=== PATIENT | male | born 1950 | race Caucasian/White ===

== ENCOUNTER 2018-10-04 14:40 | Inpatient (IN) | payer OTHER ==
--- NOTE | 2018-10-04 13:16 | GHP ---
[f rep st] PREOP HISTORY AND PHYSICAL PATIENT NAME: Richard Harry DATE OF : 1950 DATE OF PLANNED ADMISSION: 10/04/2018 ADMISSION DIAGNOSIS: Septic arthritis, right knee, following total knee arthroplasty. HPI: Richard is a 68-year-old male who underwent a total knee arthroplasty by myself in July 2017. He has done extremely well up until September 29 when he was found down on the ground at home in [place], [place]. He was taken to a local hospital there. He was found to be tachycardic, which was though t to be related to his atrial fibrillation, which he is currently on Coumadin for. They were able to get his rate controlled; however, he had several venous stasis ulcers on the right lower extremity. These were cultured and came back MRSA. He developed slowly progressive swelling in the right knee with difficulty bearing weight. This was then aspirated, yesterday, and came back with a white count of 67,000. He is being brought to [place], admitted here, so I can wash his knee out today in the o perating room. PRIOR MEDICAL HISTORY: Atrial fibrillation; coronary artery disease; mitral valve replacement with a mechanical valve; hypercholesterolemia; degenerative disk disease, lumbar spine. SURGICAL HISTORY: A right total knee replacement July 2017. MEDICATIONS: 1. Coumadin 7.5 milligrams daily. 2. Digoxin 0.25 milligrams daily. 3. Metoprolol 100 milligrams twice daily. ALLERGIES: Penicillin, sulfadiazine and sulfa. SOCIAL HISTORY: Does not smoke. Does not use alcohol. Lives in [place], [place]. REVIEW OF SYSTEMS: No shortness of breath. No chest pain. Otherwise, review of systems is unremark able. PHYSICAL EXAM: VITAL SIGNS: Temperature is 37.7, heart rate is 100, respiratory rate is 20, blood p ressure is 103/59. Oxygen saturation is 98%. GENERAL: He is alert and oriented x3, in no distress. HEAD: Normocephalic, atraumatic. EYES: Extraocular muscles intact. NECK: Supple. There is no lymphadenopathy. No JVD. CHEST: Clear to auscultation. CARDIOVASCULAR: Regular rate and rhythm. ABDOMEN: Soft, nontender, nondistended. EXTREMITIES: Right lower extremity shows venous stasis ul cers. There is redness consistent with cellulitis below the knee. The knee does have an effusion. The area over the aspiration not draining. This was superolateral. He is somewhat tender around the knee diffusely as well as posteriorly. No calf tenderness. He has full extension of the knee, flex es to about 100 degrees. ASSESSMENT: Septic arthritis following cellulitis, right lower extremity. PLAN: Given his elevated white count, and his aspiration, he has been on vancomycin, now, since the . Unfortunately, his INR, today, is 2.9, and I do not want to wait any longer, try and reverse hi m, given his history of atrial fibrillation. I will do this with a tourniquet. I am going to wash o ut his knee, change out his poly. Will get Infectious Disease to consult him as well. I will ask [facility] hospitalist to help consult and medically manage him due to his complexity and multiple medical pro blems. I anticipate a few days in the hospital, and then, we will discharge him back to [place]. He wi ll probably need a PICC line and ongoing intravenous antibiotics trying and clear this infection. /[id number]/MODL
[~2018-10-04 14:40] MED LIST: LIDOCAINE 1% 2 ML INJ ID PRN; LR 1,000 ML IV ONE; VANCOMYCIN PHARMACY TO DOSE MISC ONE
[2018-10-04] MEDS ORDERED: VANCOMYCIN 1.25 GM in NS 250 ML IV ONE (15:00)
[2018-10-04] MEDS ORDERED: ceFAZolin 1 GM/5 ML SYR ONE (15:35)
[2018-10-04] MEDS ORDERED: ROCURONIUM 50 MG/5 ML VIAL ONE (15:59)
[2018-10-04] MEDS ORDERED: LIDOCAINE 2% 2 ML INJ ONE (15:59)
[2018-10-04] MEDS ORDERED: fentaNYL 100 MCG/2 ML INJ ONE ×6 (15:59→17:57)
[2018-10-04] MEDS ORDERED: ONDANSETRON 4 MG/2 ML VIAL ONE (15:59)
[2018-10-04] MEDS ORDERED: DEXAMETHASONE 4 MG/ML VIAL ONE (15:59)
[2018-10-04] MEDS ORDERED: PROPOFOL 200 MG/20 ML VIAL ONE (16:00)
[2018-10-04] MEDS ORDERED: NALOXONE HCL 0.4 MG/ML INJ IVP PRN (16:40)
[2018-10-04] MEDS ORDERED: METOCLOPRAMIDE 10 MG/2 ML VIAL IVP PRN ×2 (16:40→18:23)
[2018-10-04] MEDS ORDERED: fentaNYL 100 MCG/2 ML INJ IVP PRN (16:40)
[2018-10-04] MEDS ORDERED: PROMETHAZINE HCL 25 MG/ML INJ IVP PRN ×2 (16:40→18:23)
[2018-10-04] MEDS ORDERED: PHENYLEPHRINE HCL 100 MCG/ML SYR IVP PRN (16:40)
[2018-10-04] MEDS ORDERED: HYDROmorphONE/DILAUDID 2 MG/ML INJ IVP PRN (16:40)
[2018-10-04] MEDS ORDERED: ONDANSETRON 4 MG/2 ML VIAL IVP PRN ×2 (16:40→18:23)
[2018-10-04] MEDS ORDERED: oxyCODONE IR 5 MG TAB PO PRN (16:40)
--- NOTE | 2018-10-04 16:40 | PDANEPAE ---
ANE Past Medical History - Cardiovascular History Hx Hypertension: Yes Hx Arrhythmias: Yes Hx Chest Pain: Yes Hx Coronary Artery / Peripheral Vascular Disease: Yes Hx CHF / Valvular Disease: Yes Hx Palpitations: No Cardiovascular History Comment: afib, CAD, carotid artery disorder, MVR w/ mech valve, on Coumadin, chronic diastolic heart failure, hypercholesteremia - Pulmonary History Hx COPD: No Hx Asthma/Reactive Airway Disease: No Hx Recent Upper Respiratory Infection: No Hx Oxygen in Use at Home: No Hx Sleep Apnea: No - Neurologic History Hx Cerebrovascular Accident: No Hx Seizures: No Hx Dementia: No - Endocrine History Hx Diabetes: No - Renal History Hx Renal Disorders: Yes Renal History Comment: kidney stones - Liver History Hx Hepatic Disorders: No - Neurological & Psychiatric Hx Hx Neurological and Psychiatric Disorders: No - Cancer History Hx Cancer: No - Congenital Disorder History Hx Congenital Disorders: No - GI History Hx Gastrointestinal Disorders: No Gastrointestinal History Comment: has had colonoscopy without polps - Chronic Pain History Chronic Pain: No - Surgical History Prior Surgeries: right TKA approximately 1 year ago,. MVR, cabg single vessel, clavical repair, hemmroidectomy ANE Review of Systems Review of Systems: - Exercise capacity METS (RN): 4 METS ANE Patient History - Allergies Allergies/Adverse Reactions: Sulfa (Sulfonamide Antibiotics) Allergy (Intermediate, Verified 10/04/18 12:42) Hives Penicillins Allergy (Unknown, Verified 10/04/18 15:03) Unknown - Home Medications Home Medications: Aspirin EC [Aspirin EC 81 mg (*)] 81 mg PO DAILY 10/04/18 [Last Taken 10/03/18] Bumetanide [Bumex (*)] 2 mg PO DAILY 10/04/18 [Last Taken 10/03/18] Digoxin [Digox] 125 mcg PO DAILY 10/04/18 [Last Taken 10/03/18] Metoprolol Tartrate [Lopressor 50 mg (*)] 50 mg PO BID 10/04/18 [Last Taken 06/13] Simvastatin 20 mg PO HS 10/04/18 [Last Taken 10/03/18] Spironolactone [Aldactone 25 MG (*)] 12.5 mg PO DAILY 10/04/18 [Last Taken 10/03] Warfarin Sodium [Coumadin 5MG (*)] 5 mg PO SUTUWETHSA 10/04/18 [Last Taken 10/03] - NPO status NPO Since - Liquids (Date): 10/04/18 NPO Since - Liquids (Time): 10:00 NPO Since - Solids (Date): 10/04/18 NPO Since - Solids (Time): 08:00 - Smoking Hx Smoking Status: Never smoked ANE Labs/Vital Signs - Vital Signs Heart Rate: 97 Respiratory Rate: 18 O2 Sat (%): 93 Height: 185.42 cm Weight: 77.96 kg ANE Physical Exam - Airway Neck exam: FROM Mallampati Score: Class 2 Mouth exam: normal dental/mouth exam - Pulmonary Pulmonary: no respiratory distress, no rales or rhonchi, clear to auscultation - Cardiovascular Cardiovascular: regular rate and rhythym, other - ASA Status ASA Status: IV ANE Anesthesia Plan Anesthesia Plan: general endotracheal anesthesia
--- NOTE | 2018-10-04 16:40 | POSTANESTH ---
Post Anesthetic Evaluation Cardiovascular Status: Normal, Stable Respiratory Status: Normal, Stable Level of Consciousness/Mental Status: Can Participate in Eval Pain Control: Adequate, Prn Tx Ordered Nausea/Vomiting Control: Adequate, Prn Tx Ordered Complications Possibly Related to Anesthesia: None Noted
[2018-10-04] MEDS ORDERED: BACITRACIN 50,000 UNITS/10 ML SYR IRR ONE (16:44)
[2018-10-04] MEDS ORDERED: BUPIVACAINE/EPI 0.5% 30 ML SDV ONE (16:52)
[2018-10-04] MEDS ORDERED: BISACODYL 10 MG SUPP PR PRN (18:23)
[2018-10-04] MEDS ORDERED: LACTULOSE 20 GM/30 ML UDCUP PO PRN (18:23)
[2018-10-04] MEDS ORDERED: ONDANSETRON DISINTEGRATING 4 MG TAB PO PRN (18:23)
[2018-10-04] MEDS ORDERED: diphenhydrAMINE 25 MG CAP PO PRN (18:23)
[2018-10-04] MEDS ORDERED: PROMETHAZINE HCL 25 MG SUPPR PR PRN (18:23)
[2018-10-04] MEDS ORDERED: HYDROmorphONE/DILAUDID 2 MG/ML INJ ONE (18:23)
[2018-10-04] MEDS ORDERED: MAGNESIUM HYDROXIDE 30 ML UDCUP PO PRN (18:23)
[2018-10-04] MEDS ORDERED: DIPHENOXYLATE/ATROPINE LOMOTIL 1 TAB PO PRN (18:23)
[2018-10-04] MEDS ORDERED: POLYETHYLENE GLYCOL 3350 17 GM PKT PO PRN (18:23)
[2018-10-04] MEDS ORDERED: WARFARIN SODIUM 5 MG TAB PO SCH ×2 (18:30→22:24)
[2018-10-04] MEDS ORDERED: LR 1,000 ML IV SCH (18:30)
--- NOTE | 2018-10-04 18:33 | POSTOPPROG ---
Post Op Note Date of Operation: 10/04/18 Surgeon: Isaiah Huang Anesthesiologist: Juan Anesthesia: LMA Pre-op Diagnosis: Septic arthritis RT knee s/p TKA Post-op Diagnosis: same Indication: infected TKA Procedure: I&D, poly exchange Findings: purulence in knee Inf/Abcess present in the surg proc area at time of surgery?: Yes Depth: Deep Incisional (Fascial) EBL: 50-100 Complications: none Bowel Protocol: Yes Clean Closure Performed: Yes Drains: Constavac
[2018-10-04] MEDS: SENNOSIDES/DOCUSATE SODIUM TAB PO SCH (20:47)
[2018-10-04] MEDS: ATORVASTATIN CALCIUM 10 MG TAB PO SCH (20:47)
[2018-10-04] MEDS: METOPROLOL TARTRATE 50 MG TAB PO SCH (20:47)
[2018-10-04 22:22] LABS: INR 2.29 (0.83-1.16); PROTIME(PATIENT) 24.1 SEC (12.0-15.0)
[2018-10-05] MEDS: ACETAMINOPHEN 325 MG TAB PO SCH ×4 (01:36→20:26)
[2018-10-05] MEDS ORDERED: VANCOMYCIN HCL/NORMAL SALINE 250 ML IV ONE (05:30)
--- NOTE | 2018-10-05 05:49 | GOP ---
[f rep st] OPERATIVE REPORT DATE OF OPERATION: 10/04/2018 SURGEON: Isaiah Huang MD ANESTHESIA: LMA. ANESTHESIOLOGIST: Dr. Martinez. PREOPERATIVE DIAGNOSIS: Septic arthritis following total knee arthroplasty, right knee. POSTOPERATIVE DIAGNOSIS: Septic arthritis following total knee arthroplasty, right knee. PROCEDURE PERFORMED: 1. Irrigation and debridement right knee. 2. Poly exchange. FINDINGS: INDICATIONS: Alex is a very pleasant 68-year-old male who has been dealing with some venous stasis ulcers on his lower leg. He lives in [place], [place]. He is status post a right total knee arthropl asty by myself back in July of 2017. He has done well until recently. He had a fall over the wee kend, was admitted to the hospital. He developed swelling in his knee. During that hospitalization, he had been started on vancomycin because cultures in his initial admission, which were of venous st asis ulcers did go out MR SA. On Wednesday his knee was aspirated and found to have 67,000 white cells within the knee aspirate. The cultures and sensitivity are still pending. He was brought to [facility] , admitted to the hospital and brought to the operating room for definitive washout and poly exchange to his right knee. DESCRIPTION OF PROCEDURE: After appropriate informed consent was obtained the patient was taken to [facility] operating room, and placed supine on the operating table. Time-out was performed. The patient wa s identified. Correct site was identified. Dr. Martinez administered anesthesia with an LMA. The r ight lower extremity was prepped and draped in the usual sterile fashion. I elevated the leg, inflat ed the tourniquet to 250 mmHg. Total tourniquet time was 54 minutes. Using the previous incision, s oft tissues were carefully exposed. There was pus draining from the inferior aspect of the extensor tendon just above the patellar tendon. I opened up the knee using the previously incised tendon. Th ere was purulence within the knee. Cultures were sent both superficial and deep. I also sent deep s amples of synovium for culture and sensitivity. The wound was thoroughly irrigated. We then everted the patella, flexed the knee up, removed the poly and irrigated the knee with pulsatile lavage using 3 L of saline with bacitracin mixture followed by 3 L of plain normal saline. Any unhealthy synoviu m was removed with a rongeur. Bleeding was controlled with the [employer]ant[employer] and electrocautery device. New poly was easily placed back into place. The wound was irrigated a final time with pulsatile la vage. The deep layers were closed with 0 Vicryl. I placed a deep drain and sewed that in place. Vidal perficial layers closed with 2-0 Vicryl. The skin was closed with juan. I instilled 20 mL of 0.5 % Marcaine around the incision and deep within the knee. Sterile dressing was applied. The patient was awakened from anesthesia, taken to the recovery room in satisfactory condition. There were no im mediate intraoperative complications. TOTAL TOURNIQUET TIME: 54 minutes at 250 mmHg. COMPLICATIONS: None. DRAINS: None. IMPLANTS USED: A posterior stabilized size 4 x 11 mm thick [employer] poly. /[id number]/MODL
--- NOTE | 2018-10-05 06:50 | SOAPPROG ---
SOAP Progress Note Assessment/Plan: Assessment: Plan: 10/05/18 06:48 POD#1 I&d RT knee s/p TKA 08/12 WBAT ROM as yoli ID to eval Subjective: Not much pain o/n Objective: Vital Signs Temp Pulse Resp BP Pulse Ox 36.8 C 84 16 127/73 H 97 10/05/18 03:48 10/05/18 03:48 10/05/18 03:48 10/05/18 03:48 10/05/18 03:48 Microbiology 10/04/18 17:27 Gram Stain - Final Knee - Eswab 10/04/18 17:27 Gram Stain - Final Knee - Eswab 10/04/18 17:27 Gram Stain - Final Knee - Tissue 10/04/18 17:27 Mycobacterial Smear (JOE) - Final Knee - Eswab Mycobacterial Culture - Final 10/04/18 17:27 Mycobacterial Smear (JOE) - Final Knee - Eswab Mycobacterial Culture - Final Laboratory Results 10/05/18 05:00 10/04/18 19:05 10/04/18 10/05/18 10/06/18 05:59 05:59 05:59 Intake Total 1300 Output Total 1300 Balance 0 PT 24.1 SEC (12.0-15.0) H 10/04/18 21:45 INR 2.29 (0.83-1.16) H 10/04/18 21:45 dressing c/d/i drain with 50 ml this am calf soft 5/5 df/pf ICD10 Worksheet Patient Problems: Problems Problem Status Onset Septic arthritis Acute - ICD10 Problem Qualifiers (1) Septic arthritis Qualifiers: Septic arthritis location: knee Septic arthritis organism: staphylococcal Laterality: right Qualified Code(s): M00.061 - Staphylococcal arthritis, right knee
[2018-10-05] MEDS: DIGOXIN 125 MCG TAB PO SCH (08:16)
[2018-10-05] MEDS: SENNOSIDES/DOCUSATE SODIUM TAB PO SCH ×2 (08:17→21:56)
[2018-10-05] MEDS: BUMETANIDE 2 MG TAB PO SCH (08:18)
[2018-10-05] MEDS: METOPROLOL TARTRATE 50 MG TAB PO SCH ×2 (08:18→21:48)
[2018-10-05] MEDS: SPIRONOLACTONE 25 MG TAB PO SCH (08:18)
[2018-10-05] MEDS: CYCLOBENZAPRINE 10 MG TAB PO PRN ×2 (11:25→21:56)
[2018-10-05] MEDS: oxyCODONE IR 5 MG TAB PO PRN ×2 (11:25→21:56)
[2018-10-05] MEDS ORDERED: WARFARIN SODIUM 5 MG TAB PO SCH (16:00)
[2018-10-05] MEDS: VANCOMYCIN 1.25 GM in D5W 250 ML IV SCH (16:45)
--- NOTE | 2018-10-05 19:32 | GCON ---
[f rep st] CONSULTATION INFECTIOUS DISEASE CONSULTATION DATE OF CONSULTATION: 10/05/2018 REASON FOR CONSULTATION: Prosthetic joint infection, right knee. HISTORY OF PRESENT ILLNESS: A 68-year-old male with a past medical history of coronary artery disease, mitral valve disease, status post mechanical valve replacement and chronic atrial fibrillation on chronic anticoagulation with Coumadin, who was recently hospitalized at an outside hospital 09/29/2018 after being found down at home. On arrival, he was tachycardic, hypoxic. A sepsis workup revealed right lower extremity cellulitis and atrial fibrillation with RVR. He had a CT head that was unremarkable. The patient was started on empiric IV vancomycin and levofloxacin on admission and was noted to have a creatinine of 2.7. While hospitalized after right lower extremity cellulitis improved, the patient was subsequently found to have a joint effusion of the right knee and underwent aspiration which revealed positive joint fluid for GPCs , subsequently growing MRSA and group A strep. The patient's orthopedist was consulted and the patient was transferred to [facility] for further management. The patient went to the OR yesterday and knee was debrided and poly materials were exchanged. ID is requested to consult for ongoing management of prosthetic joint infection, right knee, with hardware retention. PAST MEDICAL HISTORY: Atrial fibrillation, coronary artery disease, diastolic heart failure, history of mitral valve replacement with mechanical valve, lumbar DJD, total knee replacement 08/02/[address], [facility] mitral valve replacement, tricuspid repair, 1 vessel LAD CABG in 09/2007. He has also had a hernia repair. MEDICATIONS: IV vancomycin. The patient received 5 days of IV levofloxacin. He is also on a variety of blood pressure rate controlling and anticoagulation, specifically Coumadin as per HPI. ALLERGIES: Patient states he has listed penicillin and sulfa his entire life, but his reactions occurred in childhood. No recurrent reactions. SOCIAL HISTORY: No alcohol. The patient works at [employer]. Never used tobacco. Lives next to his sister, but typically lives alone and has 20 cats. FAMILY HISTORY: Reviewed and noncontributory. REVIEW OF SYSTEMS: A complete 10-point review of systems was performed and is negative except as mentioned in the HPI. PHYSICAL EXAM: VITAL SIGNS: Reviewed and the patient has been afebrile while hospitalized here at [facility]. GENERAL: This is a pleasant male , lying in bed in no distress. He has somewhat difficulty recalling details of his past medical history, but states this is not unusual for him. HEENT: Fair dentition. Moist mucous membranes. No ulcerations. NECK: Was supple. CARDIOVASCULAR: Irregularly irregular with a prominent mechanical click at the S2. CHEST: Clear to auscultation bilaterally. ABDOMEN: Soft, nontender. Bowel sounds present. EXTREMITIES: His bilateral lower extremities have 2 to 3+ soft pitting edema with 2+ pulses. He has some small venous stasis ulcers on the medial ankle and one on the lateral ankle on the right foot. He has a petechial eruption that is most consistent with resolving erythema, mild right lower extremity warmth. Dressing was in place over the right knee with [address], primarily blood was in the drains. NEUROLOGIC: He is alert and oriented x4. He is moving all 4 extremities equally. SKIN: No rashes, other than what was described below. LABORATORY: Peak white count at outside hospital 13.6, ESR 107. Culture from 09/29/2018 showed moderate MRSA, moderate group A strep, MRSA resistant to tetracycline, susceptible to Bactrim, clindamycin with a JOE less than 0.25, Cipro JOE less than 0.5, levofloxacin 0.25, rifampin less than 0.5, vancomycin JOE 1, linezolid 2, erythromycin less than 0.25. Repeat cultures were taken here at [facility]. ASSESSMENT AND PLAN: This is a 68-year-old male with multiple cardiac issues, who underwent a right total knee arthroplasty 08/02/2017, now has a septic joint over a year later with group A strep and MRSA, likely portal of entry is chronic venous stasis ulcers. The patient is now status post washout with joint retention. 1. Reviewed course of IV antibiotics of 6 weeks; stop date 11/15/2018, would probably plan for destination suppressive antibiotics; therefore, adjunct therapy with rifampin is not likely indicated as this would be utilized only if attempting care. 2. Blood cultures at outside hospital were negative; therefore, prosthetic valve endocarditis is lower on the differential. 3. Discussed need for PICC line placement and reviewed risks and benefits. 4. Discussed lifelong suppressive antibiotics. Would likely need to utilize Bactrim and will discuss that he does not likely have ongoing allergy, drug interaction with Coumadin and the patient is high risk with underlying renal insufficiency. Greater than 70 minutes spent on this patients care, greater than 50% of time spent counseling, educating, and coordinating care regarding the above mentioned plan. Thank you for this consultation. We will continue to follow on a daily basis and follow cultures. /[id number]/MODL MTDD
[2018-10-05] MEDS ORDERED: ALTEPLASE 2 MG VIAL IVP PRN (20:55)
[2018-10-05] MEDS: ATORVASTATIN CALCIUM 10 MG TAB PO SCH (21:56)
--- NOTE | 2018-10-05 22:02 | PDMN ---
Medical Necessity Medical necessity: Pt meets IP criteria per MD; est los >2 mn for eval/tx of septic arthritis s/p R TKA; requiring I&D, PICC placement, IV abx & ID consult; per order 10/04/18
[2018-10-06] MEDS: ACETAMINOPHEN 325 MG TAB PO SCH ×4 (01:28→18:11)
[2018-10-06] MEDS: VANCOMYCIN 1.25 GM in D5W 250 ML IV SCH ×2 (06:04→18:07)
[2018-10-06 06:05] LABS: INR 4.17 (0.83-1.16); PROTIME(PATIENT) 38.1 SEC (12.0-15.0)
--- NOTE | 2018-10-06 08:02 | SOAPPROG ---
SOAP Progress Note Assessment/Plan: Assessment: Plan: 10/05/18 06:48 POD#1 I&d RT knee s/p TKA 08/12 WBAT ROM as yoli ID to eval 10/06/18 08:00 S/P I&d poly exchange appreciate ID 's assistance PICC today will need 6 weeks abx will change dressing/pull drain Wednesday Morning poss DC Wed/SAt back to [place] Subjective: feeling better walked with PT Objective: drain 30 ml dressing c/d/i / df/pf Vital Signs Temp Pulse Resp BP Pulse Ox 36.8 C 76 16 131/71 H 92 10/06/18 07:36 10/06/18 07:36 10/06/18 07:36 10/06/18 07:36 10/06/18 07:36 Microbiology 10/04/18 17:27 Mycobacterial Smear (JOE) - Final Knee - Tissue 10/04/18 17:27 Gram Stain - Final Knee - Eswab 10/04/18 17:27 Gram Stain - Final Knee - Eswab 10/04/18 17:27 Gram Stain - Final Knee - Tissue Laboratory Results 10/06/18 05:13 10/04/18 19:05 10/05/18 10/06/18 10/07/18 05:59 05:59 05:59 Intake Total 1300 350 Output Total 1300 1445 Balance 0 -1095 PT 38.1 SEC (12.0-15.0) H 10/06/18 05:13 INR 4.17 (0.83-1.16) H 10/06/18 05:13 ICD10 Worksheet Patient Problems: Problems Problem Status Onset Septic arthritis Acute - ICD10 Problem Qualifiers (1) Septic arthritis Qualifiers: Septic arthritis location: knee Septic arthritis organism: staphylococcal Laterality: right Qualified Code(s): M00.061 - Staphylococcal arthritis, right knee
--- NOTE | 2018-10-06 09:19 | ASMTCMCOM ---
CM Note CM Note Notes: Pt had knee I&D, lives in [place] alone. Pt sister resides near him. PT rec HHC yesterday, pt declines HC and reports he will go to outpatient facility in [place]. Pt has 20 indoor cats and 10 outdoor cats. Pt declines SNF. Pt needs 6 weeks IV antibiotics, needs picc. Referral sent to [facility]. [facility]. CM to follow. D/c plan of care: Home with [facility] infusion Date Signed: 10/06/2018 09:18 AM Electronically Signed By:TO Pereira
[2018-10-06] MEDS: SPIRONOLACTONE 25 MG TAB PO SCH (09:22)
[2018-10-06] MEDS: METOPROLOL TARTRATE 50 MG TAB PO SCH ×2 (09:23→21:31)
[2018-10-06] MEDS: BUMETANIDE 2 MG TAB PO SCH (09:23)
[2018-10-06] MEDS: DIGOXIN 125 MCG TAB PO SCH (09:23)
[2018-10-06] MEDS: SENNOSIDES/DOCUSATE SODIUM TAB PO SCH ×2 (09:24→21:31)
--- NOTE | 2018-10-06 10:29 | HOSPPROG ---
Hospitalist Progress Note Assessment/Plan: Patient is a 68 y/o with a hx of CAD, mechanical valve replacement, chronic atrial fibrillation on OAC. He was recently hospitalized at another hospital on 09/29/2018. He was found down and brought to the hospital for concerns of sepsis. On that admission, was noted to be tachycardic and hypoxic. He was noted to have a lower extremity cellulitis and in afib w RVR. During his stay, he was found to have a joint effusion and transferred here for Dr Huang to see. He underwent aspiration w Dr Huang. Patient went to OR on 10/04 and the r knee was debrided and poly materials were exchanged. First encounter, chart reviewed. *Afib w RVR -rate controlled, on OAC -asked pharmacy to dose *mechanical mitral valve -goal INR 2.5-3.5 -asked pharmacy to dose (INR today is 4.17) *significant lower ext edema -will get an echo *Right septic TKA, MRSA and GAS -on vancomycin -PICC being placed today -he wants only to return to [place] for care -this could be difficult in regards to abx and f/u care/ spoke w Heather with CM and she is looking into f/u care *CHF -f/u with echo -patient had bypass many years ago *Venous ulcers -wound care *plan: f/u with echo, PICC today, CM working on f/u care. Subjective: Alex is feeling fine, no complaints. Objective: Vital Signs Temp Pulse Resp BP Pulse Ox 36.8 C 76 16 131/71 H 92 10/06/18 07:36 10/06/18 09:23 10/06/18 07:36 10/06/18 09:23 10/06/18 07:36 Microbiology 10/04/18 17:27 Gram Stain - Final Knee - Eswab 10/04/18 17:27 Mycobacterial Smear (JOE) - Final Knee - Tissue 10/04/18 17:27 Gram Stain - Final Knee - Eswab 10/04/18 17:27 Gram Stain - Final Knee - Tissue Laboratory Results 10/06/18 05:13 10/04/18 19:05 10/05/18 10/06/18 10/07/18 05:59 05:59 05:59 Intake Total 1300 350 Output Total 1300 1445 Balance 0 -1095 PT 38.1 SEC (12.0-15.0) H 10/06/18 05:13 INR 4.17 (0.83-1.16) H 10/06/18 05:13 - Physical Exam Constitutional: appears nourished, chronically ill appearing Eyes: PERRL Ears, Nose, Mouth, Throat: hearing normal Cardiovascular: systolic murmur (click noted over left sternal border), irregularly irregular Respiratory: no respiratory distress, reduced air movement Skin: warm, other (significant bilateral lower ext edema, right leg > than left , took dressing off right knee w edema, red, has ecchymosis on the calf on right , palpable pulses) Neurologic: AAOx3 Psychiatric: interacting appropriately ICD10 Worksheet Patient Problems: Problems Problem Status Onset Septic arthritis Acute
--- NOTE | 2018-10-06 11:08 | PCMIDPN ---
Assessment/Plan: #MRSA & GAS R Septic TKA: mild residual mir erythema over knee --Vanco T today --may need to consider Daptomycin due to remote location where he lives. Hopeful surgical cx will grow locally. Dapto sensi was not run at OSH --unclear how he will get f/u, discussed w case management --place PICC line #LATANYA and venous stasis ulcer LLE --check ECHO --wound care consult Meds vancomycin 1.25gm IV q12h #2, vancomycin JOE for MRSA = 1 micro 10/04 tissue cx (2) gram stain GPC; Cx: NGTD Subjective: patient without specific c/o feeling better, stronger today Objective: Vital Signs Temp Pulse Resp BP Pulse Ox 36.8 C 76 16 131/71 H 92 10/06/18 07:36 10/06/18 09:23 10/06/18 07:36 10/06/18 09:23 10/06/18 07:36 Microbiology 10/04/18 17:27 Gram Stain - Final Knee - Eswab 10/04/18 17:27 Mycobacterial Smear (JOE) - Final Knee - Tissue 10/04/18 17:27 Gram Stain - Final Knee - Eswab 10/04/18 17:27 Gram Stain - Final Knee - Tissue Laboratory Results 10/06/18 05:13 10/04/18 19:05 10/05/18 10/06/18 10/07/18 05:59 05:59 05:59 Intake Total 1300 350 Output Total 1300 1445 Balance 0 -1095 - Physical Exam General Appearance: alert, no apparent distress EENT: pale conjunctiva, No scleral icterus, No thrush Respiratory: crackles (B crackles bases), No accessory muscle use Neck: supple Cardiac/Chest: irregularly irregular, other (mechanical click) Extremities: pedal edema (2-3+), other (mir erythema over distal part of knee , surgical incision intact; Distal R leg with petechial changes, mir changes ) Peripheral Pulses: 1+: dorsalis-pedis (R), dorsalis-pedis (L) Male Genitalia: hartman Skin: warm/dry, No diaphoresis, No rash Neuro/Psych: alert, normal mood/affect, oriented x 3 - Time Spent With Patient Time Spent with Patient: greater than 35 minutes Time Spent with Patient: Greater than 35 minutes spent on this patients care, greater than 50% of time spent counseling, educating, and coordinating care regarding the above mentioned plan. ICD10 Worksheet Patient Problems: Problems Problem Status Onset Septic arthritis Acute
[2018-10-06] MEDS: CYCLOBENZAPRINE 10 MG TAB PO PRN ×2 (13:39→21:32)
--- NOTE | 2018-10-06 16:41 | ASMTCMCOM ---
CM Note CM Note Notes: Pt needs 6 weeks IV antibiotics, referral sent to [facility]. Pt has no prescription coverage, pt is self-pay for IV antibiotics. If pt d/c on Vanco, the cost is approx $385/wk which pt reports he can pay. 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 [facility] can staff pt for HHC RN, referral faxed to ([phone]) they are informed about pt number of cats and will support him best they can, teaching pt how to have a sterile cat-free area for the IV antibiotics. Rubi at [facility] reports they do have outpatient infusion cntr and they do not an infectious disease doc, they send pts to the [place] for ID. Delia with [facility] says outpatient infusion may be an option if pt d/c on dapto. Pt does not want to consider SNF in [facility]. Pt says if he goes home he can make it back to [place] for an ID appointment, if he cannot drive then his niece or sister can drive weather permitting. Pt does not want to consider the one SNF in [place], [place]. Angelique Ortiz ([phone]) is the CM at the [facility], she is not in the office today and a referral was faxed to [phone]. Several d/c options were discussed with pt, he wants to know if the [facility] bed is available, this likely will not be known until tomorrow. Pt reports he thinks he ultimately wants to go home. PT rec HHC today and OT rec SNF. Of note: Pt initially said his sister would be his ride home, then later in day indicates his sister mentioned taking an ambulance home, pt was under the impression his insurance would cover it and he is informed it would not covered by insurance. D/c plan: TBD Date Signed: 10/06/2018 04:41 PM Electronically Signed By:TO Pereira
[2018-10-06] MEDS: VANCOMYCIN HCL/NORMAL SALINE 250 ML IV SCH (18:12)
--- NOTE | 2018-10-06 18:16 | ECHO ---
[email or web address] [address] [address] Main: [phone] Echocardiography Examination Transthoracic Name: OZZIE VILLARREAL MR#: [id number] Study Date: 10/06/2018 Study Time: 11:26 AM Date of : 1950 Age: 68 year(s) Height: 185.4 cm (73 in.) Weight: 77.57 kg (171 lb.) BSA: 2.01 m2 Gender: Male Examination: Echo Contrast: Image Quality: Adequate Rhythm: Heart Rate: BP: 131 mmHg/71 mmHg Indication: MV mechanical valve/LATANYA/eval LV function/post op knee, hx CAD/A fib/TV repair/CABG Procedure Staff Referring Physician: Cleaning Professional: Danni Clement RDCS Reading Physician: Anders Frias MD Requesting Provider: Indication: MV mechanical valve/LATANYA/eval LV function/post op knee, hx CAD/A fib/TV repair/CABG Measurements Chambers AV/MV Label Value Normal Value Label Value Normal Value EF lower range (%) 65 % AV PGmean 3 mmHg EF upper range (%) 70 % AV Vmax 1.32 m/s IVSd, 2D 1.1 cm (0.6cm - 1.1cm) MV DT 208 ms LVDd, 2D 4.8 cm (4.2cm - 5.9cm) MV E' lateral 0.08 m/s LVDs, 2D 3 cm (2.1cm - 4cm) MV E' mean 0.08 m/s LVEF, 2D 66 % (54% - 74%) MV E' septal 0.08 m/s LVEF, MOD2 77 % (55% - 70%) MV PGmax 14 mmHg LVEF, MOD4 69 % (55% - 70%) MV PGmean 5 mmHg LVOTd 2.4 cm (1.9cm - 2.1cm) MV VTI 39.4 cm LVPWd, 2D 1.2 cm (0.6cm - 1cm) TV/PV LA Area, A2C 36.4 cm2 (0cm2 - 20cm2) Label Value Normal Value LA Volume, A2C 160 ml (18ml - 58ml) TV PGmax 6 mmHg LA Volume, A4C 159 ml (16ml - 34ml) TV PGmean 2 mmHg LA Volume, BP 171 ml (18ml - 58ml) TV Vmax 1.21 m/s (0.3m/s - 0.7m/s) LAD Index, 2D 2.19 cm/m2 TV Vmax, Caliper 1.21 m/s (0.3m/s - 0.7m/s) LADs, 2D 4.4 cm (3cm - 4cm) TV Vmean 0.7 m/s LAESV index, MOD4 79.1 ml/m2 TV VTI 36.5 cm Additional Vessels TX End stephenson Israel 1.34 cm/s Label Value Normal Value AoAsc 3.8 cm Patient: OZZIE VILLARREAL Study Date: 10/06/2018 Page 1 of 3 11:26 AM AoRoot, MM 4.1 cm (2.2cm - 3.7cm) Conclusions A cause for the patient's lower extremity edema is not identified on the basis of this study. Left Ventricle: EF range is estimated at 65 % - 70 %. There is mild concentric left ventricular hypertrophy. Unable to assess Diastolic Dysfunction due to atrial fibrillation/a flutter. Left Atrium: The left atrium is severely dilated. Aortic Valve: No aortic valve regurgitation. The aortic valve is trileaflet. Tricuspid Valve: There is a tricuspid annuloplasty ring in place.. No significant tricuspid regurgitation. Pulmonic Valve: Pulmonic leaflets are structurally normal. Moderate pulmonic valve regurgitation is present. Aorta: The aortic root size in M-mode measures 4.1 cm. Aorta Measurements AoRoot, MM is 4.1 cm. Pericardium: There is a left pleural effusion. Findings A cause for the patient's lower extremity edema is not identified on the basis of this study. The mechanical mitral valve is functioning normally, and the tricuspid ring is intact and working well. . Left Ventricle: The ejection fraction, measured by MOD4, is 69 %. EF range is estimated at 65 % - 70 %. There is mild concentric left ventricular hypertrophy. Unable to assess Diastolic Dysfunction due to atrial fibrillation/a flutter. Left Atrium: The left atrium is severely dilated. Mitral Valve: There is a [place] Jarrett mechanical MV in place. MV max PG is 14mmHG. MV mean PG is 5mmHG.. Trivial mitral regurgitation. Aortic Valve: No aortic valve regurgitation. The aortic valve is trileaflet. Tricuspid Valve: There is a tricuspid annuloplasty ring in place.. No significant tricuspid regurgitation. Pulmonic Valve: Pulmonic leaflets are structurally normal. Moderate pulmonic valve regurgitation is present. Aorta: The aortic root size in M-mode measures 4.1 cm. The ascending aorta measures 3.8 cm. Patient: OZZIE VILLARREAL Study Date: 10/06/2018 Page 2 of 3 11:26 AM Aorta Measurements AoRoot, MM is 4.1 cm. Pericardium: There is a left pleural effusion. Exam Details Procedure Ordered: Echo Procedure Status: Routine study Image Quality: Adequate Facility Location: Cardiac Echo 1 (No Signature Object) Patient: OZZIE VILLARREAL Study Date: 10/06/2018 Page 3 of 3 11:26 AM [id number]
[2018-10-06] MEDS: ATORVASTATIN CALCIUM 10 MG TAB PO SCH (21:32)
[2018-10-06] MEDS: oxyCODONE IR 5 MG TAB PO PRN (21:32)
[2018-10-06 22:44] LABS: PLATELET COUNT 432 10^3/uL (150-400)
[2018-10-07] MEDS: ACETAMINOPHEN 325 MG TAB PO SCH ×4 (04:31→21:54)
[2018-10-07] MEDS: VANCOMYCIN HCL/NORMAL SALINE 250 ML IV SCH ×2 (05:46→21:49)
[2018-10-07 06:31] LABS: INR 2.81 (0.83-1.16); PROTIME(PATIENT) 28.2 SEC (12.0-15.0)
[2018-10-07] MEDS: METOPROLOL TARTRATE 50 MG TAB PO SCH ×2 (08:19→21:55)
[2018-10-07] MEDS: DIGOXIN 125 MCG TAB PO SCH (08:20)
[2018-10-07] MEDS: BUMETANIDE 2 MG TAB PO SCH (08:20)
[2018-10-07] MEDS: SPIRONOLACTONE 25 MG TAB PO SCH (08:21)
[2018-10-07] MEDS: SENNOSIDES/DOCUSATE SODIUM TAB PO SCH ×2 (08:22→21:55)
--- NOTE | 2018-10-07 09:25 | PCMIDPN ---
Assessment/Plan: #MRSA & GAS R Septic TKA: mild residual mir erythema over knee. Mild tenderness --Vanco T yesterday a little high and decreased vancomycin dose to 1 g IV q.12; leave on vancomycin until closer to discharge see tentative plans below --may need to consider Daptomycin due to remote location where he lives. Hopeful surgical cx will grow locally. Dapto sensi was not run at OSH --discussed case with Rashel Germain PA [phone] and asked about transition to daptomycin 600mg at the hospital in [facility]. I lean toward daptomycin because TDM very difficult in [facility], turnaround for Vanco T is 2 days. Plan swing bed for a couple weeks then patient to receive IV antibiotics in infusion center in [facility] (hospital walkable from his house). I tentatively planned to coordinate care with local PA to continue IV antibiotics at their local hospital and get by with only 1 trip to [place] during his therapy. --repeat white count tomorrow, baseline CK #LATANYA and venous stasis ulcer LLE --echo shows normal EF, suspect venous insufficiency --wound Care consult today # Elevated LFTs: Unclear etiology could be resolving sepsis from outside hospital, continue to monitor Meds vancomycin 1gm IV q12h #3, vancomycin JOE for MRSA = 1 micro 03 tissue cx (2) gram stain GPC; Cx: rare GPC Subjective: Pt is feeling well today and was able to sleep last night. Is reluctant to come to [facility] for daptomycin infusions as he lives in [place], [place]. IMary Lou, am scribing for, and in the presence of, Camelia Ervin MD ICamelia MD, personally performed the services described in this documentation, as scribed by Mary Lou Ochoa in my presence, and it is both accurate and complete. Objective: Vital Signs Temp Pulse Resp BP Pulse Ox 36.4 C 93 14 155/73 H 94 10/07/18 07:37 10/07/18 08:20 10/07/18 07:37 10/07/18 08:19 10/07/18 07:37 Microbiology 10/04/18 17:27 Gram Stain - Final Knee - Eswab 10/04/18 17:27 Gram Stain - Final Knee - Eswab 10/04/18 17:27 Gram Stain - Final Knee - Tissue Laboratory Results 10/06/18 16:26 10/06/18 16:26 10/06/18 10/07/18 10/08/18 05:59 05:59 05:59 Intake Total 350 300 Output Total 1445 3025 Balance -1091 -3319 C-Reactive Protein 67.6 mg/L (<10.0) H 10/06/18 16:26 10/06/18 16:26 Vancomycin Trough 17.3 - Physical Exam General Appearance: alert, no apparent distress EENT: No scleral icterus, No thrush Respiratory: other (crackles at the bases ), No respiratory distress Cardiac/Chest: irregularly irregular, other (mechanical click most prominent over mid-sternum ) Extremities: pedal edema (2-3+), swelling, other (mir erythema over distal part of knee, surgical incision c/d/i drains in place drainage serosanguinous fluid; mild tenderness just distal to petalla; petechial changes, mir changes distally) Skin: warm/dry, No rash Neuro/Psych: oriented x 3 - Line/s RUE PICC Lines: No drainage, No erythema - Time Spent With Patient Time Spent with Patient: greater than 35 minutes (Care coordinated with case management and Orthopedics) Time Spent with Patient: Greater than 35 minutes spent on this patients care, greater than 50% of time spent counseling, educating, and coordinating care regarding the above mentioned plan. ICD10 Worksheet Patient Problems: Problems Problem Status Onset Septic arthritis Acute
--- NOTE | 2018-10-07 10:26 | WOCRNPDOC ---
WOCRN Advanced Assessment Note - Skin Integrity Problem, Advanced Assess Right Lower Lateral Leg Venous Stasis Ulcer Dressing Type: Carlos Bandage, Allevyn Life Dressing Description: Intact, Shadowed Closure Description: Not Approximated Exudate Amount: Minimal Exudate Color: Clear, Yellow Exudate Characteristic(s): Serous Integumentary Issue Intervention: Visualized Under Dressing Lynn Wound Tissue: Ecchymotic, Swollen Lynn Wound Swelling: Moderate Wound Bed Color: Red, Yellow Wound Bed Constitution: Red/Elberfeld - Non Granular Tissue, Mixed Loose & Adhered Slough/Eschar Wound Edges: Attached, Well Defined Site Measurement - Head-to-Toe Length X Width X Depth (cm): 1.5x2x0.2 Skin Integrity Problem Comment: Carlos wraps removed from patient's legs. Allevyn life dressing pulled back revealing an open wound. Wound bed largely covered with slough, but small central portion of wound bed clear. Per patient and CAN Lin's report, wound is much less exudative today and overall leg swelling is improved. Both legs measured for compression. Will initiate dressing orders including the use of silvasorb. Spandagrip Size E tubed to 3N for patient. DC wound orders placed as CM is working on DC issues at this time. Wound care will round again later next week. Right Lower Medial Leg Venous Stasis Ulcer Dressing Type: Carlos Bandage, Open to Air Closure Description: Not Approximated Exudate Amount: None Lynn Wound Tissue: Erythema, Swollen, Dry Lynn Wound Swelling: Moderate Wound Bed Color: Brown Wound Bed Constitution: Scab Wound Edges: Attached, Well Defined Site Measurement - Head-to-Toe Length X Width X Depth (cm): 5x1.2xscab Skin Integrity Problem Comment: Carlos wrap removed. Patient with likely venous stasis ulcer, currently with dried scab covering wound bed. Will initiate silvasorb to moisten and cover with Allevyn dressing which will make it easier to apply compression without disturbing the wound. Wound care will follow-up later next week.
--- NOTE | 2018-10-07 10:30 | PDIAF ---
- Diagnosis Diagnosis: MRSA and GAS right septic total knee arthroplasty Code Status: Full Code - Medication Management Concrete Paver Antibiotics: Daptomycin 600 mg IV daily Long-Term Antibiotic Stop Date: 11/15/18 Discharge Medications: electronically signed and located in the Home Medication List. PICC Care - Routine: Yes - Orders Isolation Type: Contact Isolation Additional Instructions: Wound care: Change dressings to right lower lateral leg and right lower medial leg every 2 days and as needed. 1. Clean with NS and gauze 2. Skin prep leah wound 3. Silvasorb gel to wound bed 4. Cover with Allevyn Life or other bordered foam dressing Compression: Patient should have Spandagrip size E on bilateral lower legs from balls of feet to 1 inch under the knees. These should be applied each morning before patient gets out of bed, and are to be taken off each night. Nina Allen RN, Wound Care Team - Labs/Radiology CBC w/diff Date: 10/17/18 (Weekly Wednesday) CMP Date: 10/17/18 (Weekly Wednesday) CRP Date: 10/17/18 (Weekly Wednesday) CPK Date: 10/17/18 (Weekly Wednesday) Call or Fax Lab and Imaging Results to: Camelia Ervin MD [facility] at fax [phone] - Follow Up Care Current Providers and Referrals: Patient,NotPresent [Primary Care Provider] - Camelia Ervin MD [Medical Doctor] - 11/02/18 2:00 pm
--- NOTE | 2018-10-07 11:14 | PDIAF ---
- Diagnosis Diagnosis: MRSA and GAS right septic total knee arthroplasty Code Status: Full Code - Medication Management Patient Biller Antibiotics: Daptomycin 600 mg IV daily Longterm Antibiotic Stop Date: 11/15/18 Additional Medication Instructions: Hold atorvastatin while receiving daptomycin IV Discharge Medications: electronically signed and located in the Home Medication List. PICC Care - Routine: Yes - Orders Isolation Type: Contact Isolation Additional Instructions: Wound care: Change dressings to right lower lateral leg and right lower medial leg every 2 days and as needed. 1. Clean with NS and gauze 2. Skin prep leah wound 3. Silvasorb gel to wound bed 4. Cover with Allevyn Life or other bordered foam dressing Compression: Patient should have Spandagrip size E on bilateral lower legs from balls of feet to 1 inch under the knees. These should be applied each morning before patient gets out of bed, and are to be taken off each night. Nina Allen RN, Wound Care Team - Labs/Radiology CBC w/diff Date: 10/17/18 (Weekly Wednesday) CMP Date: 10/17/18 (Weekly Wednesday) CRP Date: 10/17/18 (Weekly Wednesday) CPK Date: 10/17/18 (Weekly Wednesday) Call or Fax Lab and Imaging Results to: Camelia Ervin MD [facility] at fax [phone] - Follow Up Care Current Providers and Referrals: Camelia Ervin MD [Medical Doctor] - 11/02/18 2:00 pm Patient,NotPresent [Primary Care Provider] -
[2018-10-07] MEDS ORDERED: FUROSEMIDE 20 MG/2 ML VIAL IVP ONE (12:28)
--- NOTE | 2018-10-07 12:32 | HOSPPROG ---
Hospitalist Progress Note Assessment/Plan: Patient is a 68 y/o with a hx of CAD, mechanical valve replacement, chronic atrial fibrillation on OAC. He was recently hospitalized at another hospital on 09/29/2018. He was found down and brought to the hospital for concerns of sepsis. On that admission, was noted to be tachycardic and hypoxic. He was noted to have a lower extremity cellulitis and in afib w RVR. During his stay, he was found to have a joint effusion and transferred here for Dr Huang to see. He underwent aspiration w Dr Huang. Patient went to OR on 10/04 and the r knee was debrided and poly materials were exchanged. First encounter, chart reviewed. *Afib w RVR -rate controlled -Digoxin -Metoprolol *mechanical mitral valve -goal INR 2.5-3.5 -asked pharmacy to dose -INR today is 2.81 *significant lower ext edema -EF is unremarkable -could not assess Diastolic dysfunction -reports tank terminal gauger use of diuretics a while back -trail of IV Lasix today *Right septic TKA, MRSA and GAS -Was on vancomycin, now on Dapto -PICC was placed -he wants only to return to [place] for care *CHF -f/u with echo -patient had bypass many years ago *Venous ulcers -wound care *Transaminitis: mild. will repeat labs in a.m. Dispo: possible d/c tomorrow Subjective: feels ok.. reports tank terminal gauger use of diuretics. no cp or sob. Objective: Vital Signs Temp Pulse Resp BP Pulse Ox 36.4 C 93 14 155/73 H 94 10/07/18 07:37 10/07/18 08:20 10/07/18 07:37 10/07/18 08:19 10/07/18 07:37 Microbiology 10/04/18 17:27 Gram Stain - Final Knee - Tissue 10/04/18 17:27 Gram Stain - Final Knee - Eswab 10/04/18 17:27 Gram Stain - Final Knee - Eswab Laboratory Results 10/06/18 16:26 10/06/18 16:26 10/06/18 10/07/18 10/08/18 05:59 05:59 05:59 Intake Total 350 300 Output Total 1445 3025 Balance -1095 -2725 PT 28.2 SEC (12.0-15.0) H 03/15/19 05:30 INR 2.81 (0.83-1.16) H 10/07/18 05:30 - Physical Exam Constitutional: no apparent distress, chronically ill appearing Eyes: PERRL, EOMI Ears, Nose, Mouth, Throat: moist mucous membranes, hearing normal Cardiovascular: irregularly irregular, edema Respiratory: no respiratory distress, no rales or rhonchi, clear to auscultation Gastrointestinal: normoactive bowel sounds Skin: warm Neurologic: AAOx3 Psychiatric: interacting appropriately, not anxious, not encephalopathic Lymph, Heme, Immunologic: No petechiae ICD10 Worksheet Patient Problems: Problems Problem Status Onset Septic arthritis Acute
--- NOTE | 2018-10-07 13:06 | SOAPPROG ---
SOAP Progress Note Assessment/Plan: Assessment: Plan: 10/05/18 06:48 POD#1 I&d RT knee s/p TKA 08/12 WBAT ROM as yoli ID to eval 10/06/18 08:00 S/P I&d poly exchange appreciate ID 's assistance PICC today will need 6 weeks abx will change dressing/pull drain Wednesday Morning poss DC Wed/Wed back to [place] 10/07/18 13:03 S/P I&d RT knee s/p TKA 16 mos ago plan for DC Wednesday back to [place] cont IV daptomycin x 6 weeks Patient agrees to return to [place] for ID f/u Subjective: feeling better did stairs with PT today Objective: dressing changed, sig improvement in swelling and redness no drainage from wound drain pulled min pain with PROM of knee Vital Signs Temp Pulse Resp BP Pulse Ox 36.4 C 93 14 155/73 H 94 10/07/18 07:37 10/07/18 08:20 10/07/18 07:37 10/07/18 08:19 10/07/18 07:37 Microbiology 10/04/18 17:27 Gram Stain - Final Knee - Tissue 10/04/18 17:27 Gram Stain - Final Knee - Eswab 10/04/18 17:27 Gram Stain - Final Knee - Eswab Laboratory Results 10/06/18 16:26 10/06/18 16:26 10/06/18 10/07/18 10/08/18 05:59 05:59 05:59 Intake Total 350 300 Output Total 1445 3025 Balance -1095 -2725 PT 28.2 SEC (12.0-15.0) H 10/07/18 05:30 INR 2.81 (0.83-1.16) H 10/07/18 05:30 ICD10 Worksheet Patient Problems: Problems Problem Status Onset Septic arthritis Acute - ICD10 Problem Qualifiers (1) Septic arthritis Qualifiers: Septic arthritis location: knee Septic arthritis organism: staphylococcal Laterality: right Qualified Code(s): M00.061 - Staphylococcal arthritis, right knee
--- NOTE | 2018-10-07 13:46 | ASMTCMCOM ---
CM Note CM Note Notes: [facility] CM Angelique Ortiz ([phone]) reports they can accept pt in their swing bed, pt agrees to d/c there. Per Angelique pt has to provide his own ride, he does not qualify for ambulance. Pt reports he has a ride tomorrow, his friend's dghtr Lydia. Pt may d/c tomorrow. As of now pt does not know Lydia's availability tomorrow, pt is asked to confirm with Lydia she is available tomorrow by 1. [facility] cannot take pt any later than 1800 and it takes 3 hours to get to [place]. Pt will need a does of Dapto before leaving. Prior to pt leaving a doc to doc needs to happen with KERI Allen [phone] and a nurse to nurse at [phone]. Orders to be faxed to [phone]. [facility] main number is [phone]. ID [address] Ervin spoke with Alejandro who knows pt and will help make sure he gets back to [place] at least once for ID care. D/c plan of care: [facility] Swing bed Date Signed: 10/07/2018 01:45 PM Electronically Signed By:TO Pereira
[2018-10-07] MEDS: TAMSULOSIN HCL 0.4 MG CAP PO SCH (15:53)
[2018-10-07] MEDS ORDERED: WARFARIN SODIUM 2.5 MG TAB PO ONE (16:00)
[2018-10-07] MEDS ORDERED: WARFARIN SODIUM 5 MG TAB PO SCH (16:00)
[2018-10-08] MEDS: ACETAMINOPHEN 325 MG TAB PO SCH ×3 (01:26→13:41)
[2018-10-08 06:08] LABS: INR 2.72 (0.83-1.16); PROTIME(PATIENT) 27.5 SEC (12.0-15.0)
[2018-10-08 06:23] LABS: CREATINE KINASE 48 IU/L (0-224)
[2018-10-08 06:28] LABS: PLATELET COUNT 381 10^3/uL (150-400)
[2018-10-08 09:00] VITALS: BP 132/75
[2018-10-08] MEDS ORDERED: DAPTOmycin 600 MG in NS 100 ML IV SCH (09:00)
--- NOTE | 2018-10-08 09:52 | SOAPPROG ---
SOAP Progress Note Assessment/Plan: Assessment: Plan: 10/05/18 06:48 POD#1 I&d RT knee s/p TKA 08/12 WBAT ROM as yoli ID to eval 10/06/18 08:00 S/P I&d poly exchange appreciate ID 's assistance PICC today will need 6 weeks abx will change dressing/pull drain Wednesday Morning poss DC Wed/Wed back to [place] 10/07/18 13:03 S/P I&d RT knee s/p TKA 16 mos ago plan for DC Wednesday back to [place] cont IV daptomycin x 6 weeks Patient agrees to return to [facility] for ID f/u 10/08/18 09:50 S/P I&D poly exchange Will DC [facility] to [facility] swing bed Today Cont IV abx per ID I will see Patient back in clinic in 2 weeks Subjective: feeling good up eating breakfast Objective: dressing c/d/i no drainage less swelling calf soft ROM 0-90 without pain Vital Signs Temp Pulse Resp BP Pulse Ox 36.6 C 84 18 132/75 H 96 10/08/18 08:00 10/08/18 08:00 10/08/18 08:00 10/08/18 08:00 10/08/18 08:00 Microbiology 10/04/18 17:27 Gram Stain - Final Knee - Eswab 10/04/18 17:27 Mycobacterial Smear (JOE) - Final Knee - Eswab Mycobacterial Culture - Final 10/04/18 17:27 Gram Stain - Final Knee - Tissue 10/04/18 17:27 Gram Stain - Final Knee - Eswab Laboratory Results 10/08/18 05:30 10/08/18 05:30 10/07/18 10/08/18 10/09/18 05:59 05:59 05:59 Intake Total 300 1250 Output Total 3028 5796 Balance -6465 -4500 PT 27.5 SEC (12.0-15.0) H 10/08/18 05:30 INR 2.72 (0.83-1.16) H 10/08/18 05:30 ICD10 Worksheet Patient Problems: Problems Problem Status Onset Septic arthritis Acute - ICD10 Problem Qualifiers (1) Septic arthritis Qualifiers: Septic arthritis location: knee Septic arthritis organism: staphylococcal Laterality: right Qualified Code(s): M00.061 - Staphylococcal arthritis, right knee
--- NOTE | 2018-10-08 10:48 | ASMTLACE ---
LACE Length of stay for Answers: 4-6 days current admission Acuity / Level of Answers: Yes Care: Did the patient have an inpatient admission? Comorbidities - select Answers: Congestive heart failure all that apply Coronary Artery Disease Other Notes: HTN # of Emergency department Answers: 0 visits in the last 6 months Score: 12 Date Signed: 10/08/2018 10:48 AM Electronically Signed By:IBIS Smith
--- NOTE | 2018-10-08 10:51 | ASMTDCNOTE ---
Case Management Discharge Discharge Order Complete? Answers: Yes Patient to Obtain Answers: Other Notes: [facility] Medications Transportation Arranged Answers: Family/Friends EMTALA Complete Answers: No Case Management Transport Answers: No Form Complete Faxed Final Orders Answers: Yes Agency/Facility Transfer Answers: Yes Report Printed & Faxed to Receiving Agency Family Notified Answers: No Discharge Comments Notes: Pts case discussed w/ Dr. Huang and Dr. Arizmendi. CM met w/ pt. Pt reports that his sister and brother in law are coming to pick him up at 1PM today. Dr. Huang has spoken to Rashel Germain (P#: [phone]) to complete doc to doc. CM provided CAN Wilcox w/ phone number to give report. DC orders hand faxed to [place]. CM available for changes. Plan: [facility] Swing bed Date Signed: 10/08/2018 10:51 AM Electronically Signed By:IBIS Smith
--- NOTE | 2018-10-08 10:54 | ASDISCHSUM ---
Discharge Information Plan Status:SNF Medically Cleared to Leave:10/08/2018 Discharge Date:10/08/2018 CM D/C Disposition: ADT D/C Disposition:Other Rehab, Not [facility] Projected Discharge Date:10/08/2018 11:00 AM Transportation at D/C: Discharge Delay Reason: Follow-Up Date:10/08/2018 11:00 AM Discharge Slot: Final Diagnosis: Placement Information Referral Type:Home Infusion Referral ID:[id number] Provider Name: Address 1: Phone Number: Address 2: Fax Number: City: Selection Factors: State: Referral Type:*Snf/SNF Referral ID:[id number] Provider Name:[facility] Address 1:[address], Phone Number: Address 2:[address] Fax Number: [facility]:[place] Selection Factors: State:[place] Referral Type:*Home Health Care Services Referral ID:[id number] Provider Name: Address 1: Phone Number: Address 2: Fax Number: [facility]: Selection Factors: State: Patient Contact Information Contact Name:NADIRA Relationship:Sister Address: Work Phone: City: [facility] Phone: State/Zip Code: Email: Financial Information Financial Class:Medicare Primary Plan Desc:MEDICARE INPATIENT Primary Plan Number:[id number] Secondary Plan Desc:NENA INDEMNI Secondary Plan Number:[id number] Assessment Information [facility] CM Progress Note CM Note CM Note Notes: Pt had knee I&D, lives in [place] alone. Pt sister resides near him. PT rec HHC yesterday, pt declines HC and reports he will go to outpatient facility in [place]. Pt has 20 indoor cats and 10 outdoor cats. Pt declines SNF. Pt needs 6 weeks IV antibiotics, needs picc. Referral sent to [facility]. [facility] to [facility]. CM to follow. D/c plan of care: Home with [facility] infusion Date Signed: 10/06/2018 09:18 AM Electronically Signed By:TO Pereira LACE LACE Length of stay for Answers: 4-6 days current admission Acuity / Level of Answers: Yes Care: Did the patient have an inpatient admission? Comorbidities - select Answers: Congestive heart failure all that apply Coronary Artery Disease Other Notes: HTN # of Emergency department Answers: 0 visits in the last 6 months Score: 12 Date Signed: 10/08/2018 10:48 AM Electronically Signed By:IBIS Smith [facility] RAQUEL Progress Note CM Note CM Note Notes: Pt needs 6 weeks IV antibiotics, referral sent to [facility]. Pt has no prescription coverage, pt is self-pay for IV antibiotics. If pt d/c on Vanco, the cost is approx $385/wk which pt reports he can pay. Delia Gilliland met with pt and pt is agreeable to have a cat-free section of the home where he can dining room tables set up attendant the infusion. [facility] can staff pt for [facility] RN, referral faxed to ([phone]) they are informed about pt number of cats and will support him best they can, teaching pt how to have a sterile cat-free area for the IV antibiotics. Rubi at [facility] reports they do have outpatient infusion cntr and they do not an infectious disease doc, they send pts to the [place] for ID. Delia with [facility] says outpatient infusion may be an option if pt d/c on dapto. Pt does not want to consider SNF in [facility]. Pt says if he goes home he can make it back to [place] for an ID appointment, if he cannot drive then his niece or sister can drive weather permitting. Pt does not want to consider the [place] SNF [place]. Angelique Ortiz ([phone]) is the CM at the [facility] swing bed, she is not in the office today and a referral was faxed to [phone]. Several d/c options were discussed with pt, he wants to know if the [place] swing bed is available, this likely will not be known until tomorrow. Pt reports he thinks he ultimately wants to go home. PT rec HHC today and OT rec SNF. Of note: Pt initially said his sister would be his ride home, then later in day indicates his sister mentioned taking an ambulance home, pt was under the impression his insurance would cover it and he is informed it would not covered by insurance. D/c plan: TBD Date Signed: 10/06/2018 04:41 PM Electronically Signed By:TO Pereira [facility] Progress Note CM Note CM Note Notes: [facility] CM Angelique Ortiz ([phone]) reports they can accept pt in their swing bed, pt agrees to d/c there. Per Angelique pt has to provide his own ride, he does not qualify for ambulance. Pt reports he has a ride tomorrow, his friend's dghtr Lydia. Pt may d/c tomorrow. As of now pt does not know Lydia's availability tomorrow, pt is asked to confirm with Lydia she is available tomorrow by 1. The [facility] cannot take pt any later than 1800 and it takes 3 hours to get to [place]. Pt will need a does of Dapto before leaving. Prior to pt leaving a doc to doc needs to happen with KERI Germain [phone] and a nurse to nurse at [phone]. Orders to be faxed to [phone]. [facility] main number is [phone]. ID Dr Ervin spoke with Alejandro who knows pt and will help make sure he gets back to [place] at least once for ID care. D/c plan of care: [facility] Swing bed Date Signed: 10/07/2018 01:45 PM Electronically Signed By:TO Pereira Case Management Discharge Plan Note Case Management Discharge Discharge Order Complete? Answers: Yes Patient to Obtain Answers: Other Notes: [facility] Medications Transportation Arranged Answers: Family/Friends EMTALA Complete Answers: No Case Management Transport Answers: No Form Complete Faxed Final Orders Answers: Yes Agency/Facility Transfer Answers: Yes Report Printed & Faxed to Receiving Agency Family Notified Answers: No Discharge Comments Notes: Pts case discussed w/ Dr. Huang and Dr. Arizmendi. CM met w/ pt. Pt reports that his sister and brother in law are coming to pick him up at 1PM today. Dr. Huang has spoken to Rashel Germain (P#: [phone]) to complete doc to doc. provided CAN Wilcox w/ phone number to give report. DC orders hand faxed to [place]. CM available for changes. Plan: [facility] Swing bed Date Signed: 10/08/2018 10:51 AM Electronically Signed By:IBIS Smith Intervention Information
[2018-10-08] MEDS: TAMSULOSIN HCL 0.4 MG CAP PO SCH (10:56)
[2018-10-08] MEDS: BUMETANIDE 2 MG TAB PO SCH (10:57)
[2018-10-08] MEDS: SPIRONOLACTONE 25 MG TAB PO SCH (10:57)
[2018-10-08] MEDS: DIGOXIN 125 MCG TAB PO SCH (10:57)
[2018-10-08] MEDS: METOPROLOL TARTRATE 50 MG TAB PO SCH (10:58)
--- NOTE | 2018-10-08 11:26 | HOSPPROG ---
Hospitalist Progress Note Assessment/Plan: Patient is a 68 y/o with a hx of CAD, mechanical valve replacement, chronic atrial fibrillation on OAC. He was recently hospitalized at another hospital on 09/29/2018. He was found down and brought to the hospital for concerns of sepsis. On that admission, was noted to be tachycardic and hypoxic. He was noted to have a lower extremity cellulitis and in afib w RVR. During his stay, he was found to have a joint effusion and transferred here for Dr Huang to see. He underwent aspiration w Dr Huang. Patient went to OR on 10/04 and the r knee was debrided and poly materials were exchanged. 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 -cont compression stockings *Right septic TKA, MRSA and GAS -Was on vancomycin, now on Dapto -PICC was placed -he wants only to return to [place] for care *CHF -f/u with echo -patient had bypass many years ago *Venous ulcers -wound care *Urinary retention -Dockery replaced as was not able to void w/o it -[place] of Tamsulosin started on 10/07 *Transaminitis: mild. will repeat labs in a.m. Dispo: Ok for d/c from medical perspective Subjective: hoping to d/c today. legs did not respond to diuretics Objective: Vital Signs Temp Pulse Resp BP Pulse Ox 36.6 C 84 18 132/75 H 96 10/08/18 08:00 10/08/18 10:58 10/08/18 08:00 10/08/18 10:58 10/08/18 08:00 Microbiology 10/04/18 17:27 Gram Stain - Final Knee - Tissue 10/04/18 17:27 Gram Stain - Final Knee - Eswab 10/04/18 17:27 Gram Stain - Final Knee - Eswab 10/04/18 17:27 Mycobacterial Smear (JOE) - Final Knee - Eswab Mycobacterial Culture - Final Laboratory Results 10/08/18 05:30 10/08/18 05:30 10/07/18 10/08/18 10/09/18 05:59 05:59 05:59 Intake Total 300 1250 Output Total 3121 4036 Balance -4785 -9561 PT 27.5 SEC (12.0-15.0) H 10/08/18 05:30 INR 2.72 (0.83-1.16) H 10/08/18 05:30 - Physical Exam Constitutional: no apparent distress Eyes: PERRL Ears, Nose, Mouth, Throat: moist mucous membranes, hearing normal Cardiovascular: irregularly irregular, edema Respiratory: no respiratory distress Gastrointestinal: normoactive bowel sounds, soft, non-tender abdomen Skin: warm Neurologic: AAOx3 Psychiatric: interacting appropriately, not anxious, not encephalopathic Lymph, Heme, Immunologic: No petechiae ICD10 Worksheet Patient Problems: Problems Problem Status Onset Septic arthritis Acute
[2018-10-08] MEDS: SENNOSIDES/DOCUSATE SODIUM TAB PO SCH (11:34)
== END 2018-10-08 13:42 | DRG 467 ==
LOC: FSGY 14:40 → F3N 18:24
PROVIDERS: ADMIT Orthopaedic Surgery; ATTEND Orthopaedic Surgery
PROC: 0SRV0JZ Replacement of Right Knee Joint, Tibial Surface with Synthetic Substitute, Open Approach (ICD-10-PCS; principal; 2018-10-04 16:30)
PROC: 0SPV0JZ Removal of Synthetic Substitute from Right Knee Joint, Tibial Surface, Open Approach (ICD-10-PCS; principal; 2018-10-04 16:30)
PROC: 02HV33Z Insertion of Infusion Device into Superior Vena Cava, Percutaneous Approach (ICD-10-PCS; 2018-10-06)
DX: T84.53XA Infection and inflammatory reaction due to internal right knee prosthesis, initial encounter (principal); M00.861 Arthritis due to other bacteria, right knee; L03.115 Cellulitis of right lower limb; B95.62 Methicillin resistant Staphylococcus aureus infection as the cause of diseases classified elsewhere; I48.91 Unspecified atrial fibrillation; I83.019 Varicose veins of right lower extremity with ulcer of unspecified site; I25.10 Atherosclerotic heart disease of native coronary artery without angina pectoris; E78.00 Pure hypercholesterolemia, unspecified; I50.9 Heart failure, unspecified; M51.36 Other intervertebral disc degeneration, lumbar region; R33.9 Retention of urine, unspecified; Z95.2 Presence of prosthetic heart valve; Z79.01 Long term (current) use of anticoagulants
CPT/HCPCS: 97110-GP; 97116-GP; 97162-GP; 97165-GO; 97530-GP; 97535-GO; C1751; J0878; J1100; J1170; J1940; J2405; J2704; J3010; J3370